=== PATIENT | female | born 1990 | race Hispanic/Latino ===

== ENCOUNTER 2020-03-17 21:37 | Emergency (ER) | payer OTHER, SELFPAY ==
[2020-03-17 22:09] LABS: Urine Blood NEGATIVE (NEG); Urine Glucose NEGATIVE (NEG); Urine Protein 1+ (NEG); Urine Specific Gravity >1.030 (1.005-1.030); Urine pH 6.5 (5.0-7.0)
[2020-03-17] MEDS ORDERED: ONDANSETRON 4 MG/2 ML VIAL ONE (22:24)
[2020-03-17] MEDS ORDERED: NA CHLORIDE 0.9% 1,000 ML ONE (22:24)
[2020-03-17 22:47] LABS: Urine Specific Gravity >1.030 (1.005-1.030)
[2020-03-17 22:49] LABS: Absolute Lymphocytes (CBC) 2.4 K/uL (0.7-4.9); Basophils % 0.4 % (0-1.3); Hematocrit 32.2 % (36.0-45.0); Lymphocytes % 23.5 % (15.3-44.8); MPV 9.4 fL (7.6-11.3); RBC Red Blood Cell Count 4.49 M/uL (3.86-4.86)
[2020-03-17 22:58] LABS: ALT/SGPT 94 U/L (12-78); AST/SGOT 102 U/L (15-37); Alkaline Phosphatase 108 U/L (45-117); BUN Blood Urea Nitrogen 14 mg/dL (7-18); Bicarbonate 23 mmol/L (21-32); Bilirubin Direct 0.5 mg/dL (0-0.2); Bilirubin Total 1.1 mg/dL (0.2-1.0); Glucose Level 99 mg/dL (74-106); Lipase 93 U/L (73-393); Potassium 3.4 mmol/L (3.5-5.1); Protein, Total 8.6 g/dL (6.4-8.2); Sodium Level 138 mmol/L (136-145)
--- NOTE | 2020-03-17 23:37 | EDPHYS ---
Physician Documentation [facility] Name: Gilma Fairchild Age: 30 yrs Sex: Female : 1990 Arrival Date: 03/17/2020 Time: 21:41 Bed 7 Private MD: ED Physician Fred Ayala HPI: 03/17 22:16 This 30 yrs old Female presents to ER via Ambulatory with complaints of pm1 Nausea/Vomiting. 22:16 The patient presents to the emergency department with nausea, vomiting. Onset: The pm1 symptoms/episode began/occurred 2 week(s) ago. Possible causes: unknown. The symptoms are aggravated by food , The symptoms are alleviated by nothing. Associated signs and symptoms: Pertinent negatives: abdominal pain, dysuria, fever, vaginal discharge. Severity of symptoms: in the emergency department the symptoms are unchanged. The patient has not recently seen a physician. Patient sexually active without control. Historical: - Allergies: 22:02 No Known Allergies; sg - PMHx: 22:02 None; sg - PSHx: 22:02 None; sg - Immunization history:: Adult Immunizations up to date. - Social history:: Smoking status: Patient denies any tobacco usage or history of. ROS: 22:16 Constitutional: Negative for fever, chills, and weight loss, Cardiovascular: Negative pm1 for chest pain, palpitations, and edema, Respiratory: Negative for shortness of breath, cough, wheezing, and pleuritic chest pain. 22:16 Back: Negative for injury and pain, : Negative for injury, bleeding, discharge, and swelling, MS/Extremity: Negative for injury and deformity, Skin: Negative for injury, rash, and discoloration, Neuro: Negative for headache, weakness, numbness, tingling, and seizure. 22:16 Abdomen/GI: Positive for nausea and vomiting, Negative for abdominal pain, diarrhea, constipation. Exam: 22:16 Constitutional: This is a well developed, well nourished patient who is awake, alert, pm1 and in no acute distress. Head/Face: Normocephalic, atraumatic. 22:16 Back: No spinal tenderness. No costovertebral tenderness. Full range of motion. Skin: Warm, dry with normal turgor. Normal color with no rashes, no lesions, and no evidence of cellulitis. MS/ Extremity: Pulses equal, no cyanosis. Neurovascular intact. Full, normal range of motion. 22:16 Cardiovascular: Exam negative for acute changes, Rate: normal, Rhythm: regular, Pulses: no pulse deficits are appreciated, Heart sounds: normal, normal S1and S2, Edema: is not appreciated. 22:16 Respiratory: Exam negative for acute changes, the patient does not display signs of respiratory distress, Respirations: normal, Breath sounds: are clear throughout. 22:16 Abdomen/GI: Exam negative for acute changes, Inspection: abdomen appears normal, Palpation: abdomen is soft and non-tender, in all quadrants. 22:16 Neuro: Exam negative for acute changes, Orientation: is normal, Mentation: is normal, Motor: is normal, moves all fours. Vital Signs: 21:58 BP 128 / 75; Pulse 90; Resp 18; Temp 97.9(TE); Pulse Ox 100% on R/A; oe 23:07 BP 113 / 78; Pulse 82; Resp 18; Pulse Ox 100% on R/A; ea 03/18 00:15 BP 110 / 69; Pulse 80; Resp 18; Pulse Ox 98% ; ea MDM: 03/17 21:59 Patient medically screened. pm1 22:38 Data reviewed: vital signs. Data interpreted: Pulse oximetry: on room air is 100 %. pm1 Interpretation: normal. 23:31 Counseling: I had a detailed discussion with the patient and/or guardian regarding: the pm1 historical points, exam findings, and any diagnostic results supporting the discharge/admit diagnosis, lab results, the need for outpatient follow up, an OB/Gyne specialist, to return to the emergency department if symptoms worsen or persist or if there are any questions or concerns that arise at home. 03/17 22:00 Order name: Urine Dipstick--Ancillary (enter results); Complete Time: 22:27 03/17 22:08 Order name: Basic Metabolic Panel; Complete Time: 23:00 pm1 03/17 22:08 Order name: CBC with Diff; Complete Time: 23:30 pm1 03/17 22:08 Order name: Hepatic Function; Complete Time: 23:00 pm1 03/17 22:08 Order name: Lipase; Complete Time: 23:00 pm1 03/17 22:20 Order name: Urine --Ancillary (enter results) 03/17 22:08 Order name: IV Saline Lock; Complete Time: 22:09 pm1 03/17 22:08 Order name: Labs collected and sent; Complete Time: 22:09 pm1 03/17 22:08 Order name: Urine Test (obtain specimen); Complete Time: 22:34 pm1 03/17 22:47 Order name: Urine --Ancillary; Complete Time: 23:00 EDMS 03/17 23:31 Order name: PO challenge; Complete Time: 23:53 pm1 Administered Medications: 22:15 Drug: Zofran (Ondansetron) 4 mg Route: IVP; Site: right antecubital; ea 23:06 Follow up: Response: No adverse reaction ea 22:16 Drug: NS 0.9% 1000 ml Route: IV; Rate: 1000 ml; Site: right antecubital; ea 23:06 Follow up: Response: No adverse reaction; IV Status: Completed infusion; IV Intake: ea 1000ml 03/18 00:21 Drug: Phenergan 12.5 mg Route: IVP; Site: right antecubital; ea 00:22 Follow up: Response: Medication administered at discharge. ea Disposition: 03/17/20 23:36 Discharged to Home. Impression: Vomiting of , unspecified. - Condition is Stable. - Discharge Instructions: Morning Sickness, First Trimester of . - Prescriptions for promethazine 25 mg Oral Tablet - take 1 tablet by ORAL route every 6 hours As needed; 20 tablet. - Medication Reconciliation Form, Thank You Letter, Antibiotic Education, Prescription Opioid Use form. - Follow up: Emergency Department; When: As needed; Reason: Recheck today's complaints, Continuance of care, Re-evaluation by your physician. - Problem is new. - Symptoms have improved. Signatures: Dispatcher [employer] EDMS Ta Acevedo RN RN sg John Toure, CORRECTIONAL PROBATION OFFICER CORRECTIONAL PROBATION OFFICER pm1 Elvira Dudley RN RN ea Corrections: (The following items were deleted from the chart) 00:24 03/17 23:36 03/17/2020 23:36 Discharged to Home. Impression: Vomiting of , ea unspecified. Condition is Stable. Forms are Medication Reconciliation Form, Thank You Letter, Antibiotic Education, Prescription Opioid Use. Follow up: Emergency Department; When: As needed; Reason: Recheck today's complaints, Continuance of care, Re-evaluation by your physician. Problem is new. Symptoms have improved. pm1
--- NOTE | 2020-03-17 23:37 | ER ---
Nurse's Notes [facility] Name: Gilma Fairchild Age: 30 yrs Sex: Female : 1990 Arrival Date: 03/17/2020 Time: 21:41 Bed 7 Private MD: Diagnosis: Vomiting of , unspecified Presentation: 03/17 22:00 Chief complaint: Patient states: Nausea/Vomiting that began this morning, reports sg worsening tonight. pt states having lower abdominal pain as well, described as cramping that is intermittent. Coronavirus screen: Client denies travel out of the [place] in the last 14 days. At this time, the client does not indicate any symptoms associated with coronavirus-19. Ebola Screen: Patient negative for fever greater than or equal to 101.5 degrees Fahrenheit, and additional compatible Ebola Virus Disease symptoms Patient denies exposure to infectious person. Patient denies travel to an Ebola-affected area in the 21 days before illness onset. No symptoms or risks identified at this time. Initial Sepsis Screen: Does the patient meet any 2 criteria? No. Patient's initial sepsis screen is negative. Does the patient have a suspected source of infection? No. Patient's initial sepsis screen is negative. Risk Assessment: Do you want to hurt yourself or someone else? Patient reports no desire to harm self or others. Onset of symptoms was March 17, 2020. Care prior to arrival: None. Transition of care: patient was not received from another setting of care. 22:00 Acuity: TAMIR 3 sg 22:00 Method Of Arrival: Ambulatory sg Historical: - Allergies: 22:02 No Known Allergies; sg - PMHx: 22:02 None; sg - PSHx: 22:02 None; sg - Immunization history:: Adult Immunizations up to date. - Social history:: Smoking status: Patient denies any tobacco usage or history of. Screenin:08 Abuse screen: Denies threats or abuse. Nutritional screening: No deficits noted. ea Tuberculosis screening: No symptoms or risk factors identified. Fall Risk IV access (20 points). Assessment: 22:08 General: Appears in no apparent distress. Behavior is calm, cooperative, appropriate ea for age. Pain: Denies pain. Neuro: Level of Consciousness is awake, alert, obeys commands, Oriented to person, place, time, situation. Cardiovascular: Patient's skin is warm and dry. Respiratory: Airway is patent Respiratory effort is even, unlabored, Respiratory pattern is regular, symmetrical. GI: Abdomen is non-distended, Reports nausea, vomiting. 23:05 Reassessment: Patient and/or family updated on plan of care and expected duration. Pain ea level reassessed. Patient is alert, oriented x 3, equal unlabored respirations, skin warm/dry/pink. 23:47 Reassessment: Pt offered crackers for PO challenge, pt tolerating well at this time. ea 03/18 00:23 Reassessment: Patient and/or family updated on plan of care and expected duration. Pain ea level reassessed. Patient is alert, oriented x 3, equal unlabored respirations, skin warm/dry/pink. Discharge instruction given to patient, verbalized the understanding of instruction. Pt left ED ambulatory tolerating well. Vital Signs: 03/17 21:58 BP 128 / 75; Pulse 90; Resp 18; Temp 97.9(TE); Pulse Ox 100% on R/A; oe 23:07 BP 113 / 78; Pulse 82; Resp 18; Pulse Ox 100% on R/A; ea 03/18 00:15 BP 110 / 69; Pulse 80; Resp 18; Pulse Ox 98% ; ea ED Course: 03/17 21:41 Patient arrived in ED. bp1 21:59 John Toure NP is PHCP. pm1 21:59 Fred Ayala MD is Attending Physician. pm1 22:00 Elvira Dudley RN is Primary Nurse. ea 22:02 Triage completed. sg 22:02 Arm band placed on. sg 22:09 Patient has correct armband on for positive identification. Bed in low position. Call ea light in reach. Side rails up X 1. 22:10 Inserted saline lock: 20 gauge in right antecubital area, using aseptic technique. ea Blood collected. 23:47 No provider procedures requiring assistance completed. ea 03/18 00:23 IV discontinued, intact, bleeding controlled, No redness/swelling at site. Pressure ea dressing applied. Administered Medications: 03/17 22:15 Drug: Zofran (Ondansetron) 4 mg Route: IVP; Site: right antecubital; ea 23:06 Follow up: Response: No adverse reaction ea 22:16 Drug: NS 0.9% 1000 ml Route: IV; Rate: 1000 ml; Site: right antecubital; ea 23:06 Follow up: Response: No adverse reaction; IV Status: Completed infusion; IV Intake: ea 1000ml 03/18 00:21 Drug: Phenergan 12.5 mg Route: IVP; Site: right antecubital; ea 00:22 Follow up: Response: Medication administered at discharge. ea Intake: 03/17 23:06 IV: 1000ml; Total: 1000ml. ea Outcome: 23:36 Discharge ordered by . pm1 03/18 00:23 Discharged to home ambulatory, with family. ea Condition: stable Discharge instructions given to patient, Instructed on discharge instructions, follow up and referral plans. medication usage, Demonstrated understanding of instructions, follow-up care, medications, Prescriptions given X 1. 00:24 Patient left the ED. ea Signatures: Ta Acevedo, RN RN John Santa, YUDELKA NUTRITION AIDE pm1 Ok Peacock Elena, RN RN ea [place], Brittany bp1
[2020-03-18] MEDS ORDERED: PROMETHAZINE INJ 25 MG/ML AMP ONE (00:29)
[2020-03-18 03:11] VITALS: TEMP 97.9
[2020-03-18 03:15] VITALS: BP 110/69; O2SAT 98
== END 2020-03-18 00:24 | disposition home or self-care (01) ==
LOC: ER 21:37
DX: O21.9 Vomiting of pregnancy, unspecified (principal); Z3A.00 Weeks of gestation of pregnancy not specified
CPT/HCPCS: 36415; 80048; 80076; 81003; 81025; 83690; 85025; 96361; 96374; 96375; 99284; J2405; J2550; J7030